=== PATIENT | male | born 1980 | race Caucasian/White ===

== ENCOUNTER 2017-11-03 22:04 | Emergency (ER) | END 2017-11-04 00:33 | disposition home or self-care (01) ==

== ENCOUNTER 2017-12-14 18:52 | Emergency (ER) | END 2017-12-14 22:36 | disposition left against medical advice (07) ==

== ENCOUNTER 2018-05-13 10:53 | Emergency (ER) | END 2018-05-13 12:49 | disposition home or self-care (01) ==

== ENCOUNTER 2018-09-15 19:48 | Emergency (ER) | END 2018-09-15 22:00 | disposition left against medical advice (07) ==